=== PATIENT | male | born 1935 | race Caucasian/White ===

== ENCOUNTER → 2023-02-12 | Day surgery (SDC) | payer MEDICARE, OTHER ==
[2023-02-08 11:28] LABS: BASOPHILS # (AUTO) 0.1 (0.0-0.1); BASOPHILS % 0.7 % (0.0-1.0); EOSINOPHILS # (AUTO) 0.4 (0.0-0.4); EOSINOPHILS % 5.7 % (0.0-6.0); HEMATOCRIT 38.2 % (38.2-49.6); HEMOGLOBIN 12.1 g/dL (14.0-18.0); LYMPHOCYTES # (AUTO) 0.9 (1.0-3.2); MEAN CORPUSCULAR HEMOGLOBIN 30.2 pg (28-32); MEAN CORPUSCULAR HGB CONC 31.7 g/dL (31-35); MEAN CORPUSCULAR VOLUME 95.3 fL (81-99); MONOCYTES # (AUTO) 0.6 (0.2-0.8); MONOCYTES % 7.8 % (4.4-11.3); NEUTROPHILS # (AUTO) 5.7 (2.1-6.9); NEUTROPHILS % 73.5 % (38.7-80.0); PLATELET COUNT 152 x10e3/uL (140-360); RED BLOOD COUNT 4.01 x10e6/uL (4.3-5.7); RED CELL DISTRIBUTION WIDTH 12.1 % (11.7-14.4)
[2023-02-08 11:56] LABS: ALBUMIN 3.4 g/dL (3.5-5.0); ALBUMIN/GLOBULIN RATIO 1.2 (0.8-2.0); ANION GAP 11.8 mmol/L (8-16); CALCIUM 9.4 mg/dL (8.4-10.2); CHOL/HDL RATIO 2.6 (3.9-4.7); CREATININE, SERUM 1.56 mg/dL (0.72-1.25); POTASSIUM 4.8 mmol/L (3.5-5.1)
[~2023-02-12] VITALS: Ht 177.8 cm; Wt 88.5 kg
[2023-02-12] VITALS (13 sets, daily range): BP systolic 128–160; BP diastolic 60–79
[~2023-02-12] MED LIST: ALPRAZOLAM 0.5 MG TAB ONE; ASPIRIN81 MG PO; ATORVASTATIN CA10 MG PO; COREG3.125 MG PO; DIPHENHYDRAMINE HCL 25 MG CAP ONE; FENTANYL CITRATE/PF 100MCG/2 ML INJ ONE; FUROSEMIDE20 MG PO; GABAPENTIN300 MG PO; GLIPIZIDE5 MG PO; HEPARIN SOD (PORCINE) 1000 UNIT/ML 30ML ONE; HEPARIN SOD/SOD CHLORIDE 2,000 ML ONE; IOPAMIDOL 370 MG/ML 100 ML INFUS..BTL INJ ONE; ISOSORBIDE DINI20 MG PO; JANUVIA100 MG PO; LIDOCAINE HCL 2% LOCAL 20 ML VIAL ONE; LIPITOR20 MG PO; LOSARTAN POTASS25 MG PO; MIDAZOLAM HCL 2 MG/2 ML VIAL ONE; NITROGLYCERIN/D5W 200 MCG/ML 250 ML ONE; NITROGLYCERIN0.4 MG PO; PLAVIX75 MG PO; RYTHMOL SR225 MG PO; SODIUM CHLORIDE 0.9% 1000ML 1,000 ML ONE; SOTALOL80 MG PO; STOOL SOFTENER100 M1 PO; VERAPAMIL HCL 2.5 MG/ML 2 ML VIAL ONE; VITAMIN B-121000 MCG PO
== END | disposition home or self-care (01) ==
LOC: CATH LAB 13:02
PROVIDERS: ATTEND Internal Medicine Interventional Cardiology
DX: I25.118 Atherosclerotic heart disease of native coronary artery with other forms of angina pectoris (principal); I25.2 Old myocardial infarction; I44.7 Left bundle-branch block, unspecified; I49.9 Cardiac arrhythmia, unspecified; E78.00 Pure hypercholesterolemia, unspecified; E11.9 Type 2 diabetes mellitus without complications; Z01.812 Encounter for preprocedural laboratory examination; Z79.4 Long term (current) use of insulin; Z79.02 Long term (current) use of antithrombotics/antiplatelets; Z79.82 Long term (current) use of aspirin; Z79.899 Other long term (current) drug therapy; Z95.5 Presence of coronary angioplasty implant and graft; Z82.49 Family history of ischemic heart disease and other diseases of the circulatory system
CPT/HCPCS: 36415; 80053; 80061; 83880; 85025; 93454; C1769; C1887; C1894; J1644; J2001; J2250; J3010; J7030; Q9967